=== PATIENT | male | born 1960 | race Two or more races ===

== ENCOUNTER 2019-10-09 14:58 | Emergency (ER) | payer MEDICAID ==
[~2019-10-09] VITALS: Ht 175.3 cm; Wt 79.4 kg
[2019-10-09 15:03] VITALS: BP 129/54
[2019-10-09] MEDS ORDERED: CALCIUM + VITA1 EAC1 PO (15:50)
[2019-10-09] MEDS ORDERED: CRANBERRY450 M5 PO (15:50)
[2019-10-09] MEDS ORDERED: BACLOFEN10 MG ORAL (15:50)
[2019-10-09] MEDS ORDERED: DIPHENHYDRAMINE25 M1 ORAL (15:50)
[2019-10-09] MEDS ORDERED: COLACE100 MG ORAL (15:50)
[2019-10-09] MEDS ORDERED: DULCOLAX10 MG RC (15:50)
[2019-10-09] MEDS ORDERED: CITALOPRAM HBR20 M1 ORAL (15:50)
[2019-10-09] MEDS ORDERED: GERI-LANTA LIQ355 ML PO (15:56)
[2019-10-09] MEDS ORDERED: MAALOX ADVANCE1 EACH PO (15:56)
[2019-10-09] MEDS ORDERED: FOLIC ACID1 MG ORAL (15:56)
[2019-10-09] MEDS ORDERED: HYDROXYZINE HCL50 M1 PO (15:56)
[2019-10-09] MEDS ORDERED: METOPROLOL TART25 MG ORAL (15:56)
[2019-10-09] MEDS ORDERED: FERROUSUL325 M1 PO (15:56)
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
--- NOTE | 2019-10-09 16:34 | Diagnostic Imaging Report ---
Indication: Unrelieved left hip pain Technique: Noncontrast spiral acquisitions obtained through the pelvis and left hip Multiplanar reconstructions were generated. Total dose length product 1432 mGycm. CTDIvol(s) 35 mGy. Radiation dose was minimized using automated exposure control Comparison: none Findings: Exam is very limited. There is a left hip arthroplasty prosthesis which throws off considerable streak artifact which may obscure pathology. The prosthesis appears well aligned. No definite hardware fracture demonstrated. There is an unusual sleeve overlying the proximal femoral stem anteriorly and posteriorly. No definite pelvic fracture demonstrated. No evidence of proximal femoral fracture. The sacrum is intact. No definite periprosthetic lucency although this is difficult to evaluate on CT. There are degenerative changes of the lumbosacral junction Streaky opacities in the left hip subcutaneous fat could represent postsurgical scarring or could represent a mild soft tissue contusion. Retained fecal material is seen within the rectal vault which is upper limits of normal in caliber. The remainder of the visualized pelvic viscera are unremarkable. Impression: Limited exam due to artifact from left hip hardware Postsurgical changes of the left hip as described. No definite acute abnormality. Note, however, that the hardware would be better visualized on plain radiographs and this is recommended for better characterization Left hip subcutaneous fat streaky opacities, could represent scarring from the hip surgery versus a small area of contusion Degenerative lumbosacral spondylosis The CT scanner at [facility] is accredited by the [employer] and the scans are performed using protocols designed to limit radiation exposure to as low as reasonably achievable to attain images of sufficient resolution adequate for diagnostic evaluation.
[2019-10-09] MEDS ORDERED: MULTIVITAMINS1 EAC2 ORAL (16:35)
[2019-10-09] MEDS ORDERED: MILK OF MA400 MG/51 ORAL (16:35)
[2019-10-09] MEDS ORDERED: PANTOPRAZOLE SO40 MG ORAL (16:35)
[2019-10-09] MEDS ORDERED: RISPERDAL2 MG ORAL (16:35)
[2019-10-09] MEDS ORDERED: TRAZODONE HCL50 MG ORAL (16:37)
--- NOTE | 2019-10-09 17:13 | Diagnostic Imaging Report ---
Indication: Left hip pain Technique: 2 views of the left hip common view the pelvis Comparison: CT scan of earlier the same day Findings: Body habitus limits evaluation. There is a left hip arthroplasty prosthesis. This appears to be well aligned. The hardware is intact. No worrisome periprosthetic lucency. No acute fractures. No dislocations. There are degenerative changes of the lumbosacral junction Impression: No acute process
[2019-10-09 18:25] VITALS: BP 106/51
[2019-10-09 21:42] VITALS: BP 130/67
== END 2019-10-09 21:42 | disposition home or self-care (01) ==
LOC: EDBD 14:58 → EMR 15:18
DX: M25.552 Pain in left hip (principal); F03.90 Unspecified dementia, unspecified severity, without behavioral disturbance, psychotic disturbance, mood disturbance, and anxiety
CPT/HCPCS: 73502; 73700; Z7502; 99284